=== PATIENT | female | born 1975 | race Caucasian/White ===

== ENCOUNTER 2020-07-24 07:06 | Day surgery (SDC) | payer BC, OTHER ==
[2020-07-23 13:01] VITALS: BMI 26.6
[2020-07-24] MEDS ORDERED: PROPOFOL 20 ML ONE ×3 (08:03)
[2020-07-24] MEDS ORDERED: LIDOCAINE HCL/PF 2% SDV 5ML VIAL ONE (08:03)
[2020-07-24 08:45] VITALS: TEMP 98.4
[2020-07-24 09:03] VITALS: BP 114/66; PULSE 64
== END 2020-07-24 09:27 | disposition home or self-care (01) ==
LOC: FASU-ENDO 07:06
PROVIDERS: ATTEND Internal Medicine Gastroenterology
PROC: 0DB68ZX Excision of Stomach, Via Natural or Artificial Opening Endoscopic, Diagnostic (ICD-10-PCS; 2020-07-24)
PROC: 0DB98ZX Excision of Duodenum, Via Natural or Artificial Opening Endoscopic, Diagnostic (ICD-10-PCS; principal; 2020-07-24 08:19)
DX: K31.7 Polyp of stomach and duodenum (principal); K29.50 Unspecified chronic gastritis without bleeding; K21.9 Gastro-esophageal reflux disease without esophagitis; R10.13 Epigastric pain
CPT/HCPCS: 84703; 88305-TC; 88342-TC

== ENCOUNTER 2021-02-02 07:32 | Day surgery (SDC) | payer BC ==
[2021-01-29 11:45] VITALS: BMI 26.6
[2021-02-02] MEDS ORDERED: LIDOCAINE HCL/PF 2% SDV 5ML VIAL ONE (07:40)
[2021-02-02] MEDS ORDERED: PROPOFOL 20 ML ONE ×4 (07:40)
[2021-02-02 09:07] VITALS: TEMP 97.8
[2021-02-02 09:28] VITALS: BP 110/65; PULSE 60
== END 2021-02-02 09:50 | disposition home or self-care (01) ==
LOC: FASU-ENDO 07:32
PROVIDERS: ATTEND Internal Medicine Gastroenterology
PROC: 0DBN8ZX Excision of Sigmoid Colon, Via Natural or Artificial Opening Endoscopic, Diagnostic (ICD-10-PCS; principal; 2021-02-02 08:33)
DX: Z12.11 Encounter for screening for malignant neoplasm of colon (principal); Z83.71 Family history of colonic polyps; D12.5 Benign neoplasm of sigmoid colon
CPT/HCPCS: 81025; 88305-TC

== ENCOUNTER 2022-07-28 16:13 | Emergency (ER) | payer BC, OTHER ==
[2022-07-28] MEDS ORDERED: diphenhydrAMINE HCL 25 MG CAPSULE (FP) PO ONE (16:16)
[2022-07-28] MEDS ORDERED: diphenhydrAMINE HCL 50 MG CAPSULE ONE (16:27)
[2022-07-28] MEDS ORDERED: DEXAMETHASONE LIQUID 0.5 MG/5 ML PO ONE (16:27)
[2022-07-28] MEDS ORDERED: EPINEPHrine 1:1,000 0.3 MG/0.3 ML SYR IM ONE ×2 (16:28→18:01)
[2022-07-28] MEDS ORDERED: EPINEPHrine/PF 1 MG/1 ML (1:1,000) AMPULE ONE ×2 (16:30→18:03)
[2022-07-28] MEDS ORDERED: DEXAMETHASONE SOD PHOSPHATE 10 MG/1 ML VIAL ONE (16:30)
[2022-07-28] MEDS ORDERED: ALBUTEROL SO4 2.5/IPRATROPIUM 0.5 INH SOL 3 ML VIAL.NEB. NEB ONE ×3 (16:30→18:08)
[2022-07-28 16:41] VITALS: TEMP 99.3
[2022-07-28 16:48] VITALS: BMI 26.6
[2022-07-28] MEDS ORDERED: FAMOTIDINE 20 MG TABLET PO ONE (18:07)
[2022-07-28] MEDS ORDERED: FAMOTIDINE 20 MG TABLET ONE (18:08)
[2022-07-28] MEDS ORDERED: ALBUTEROL SO4 2.5/IPRATROPIUM 0.5 INH SOL 3 ML VIAL.NEB. NEB SCH (18:15)
[2022-07-28 20:00] VITALS: PULSE 93; RESP 14
[2022-07-28 21:09] VITALS: BP 115/70
== END 2022-07-28 22:57 | disposition home or self-care (01) ==
LOC: FER 16:13
PROC: 3E023GC Introduction of Other Therapeutic Substance into Muscle, Percutaneous Approach (ICD-10-PCS; principal; 2022-07-28)
PROC: 3E0F7GC Introduction of Other Therapeutic Substance into Respiratory Tract, Via Natural or Artificial Opening (ICD-10-PCS; 2022-07-28)
DX: T78.2XXA Anaphylactic shock, unspecified, initial encounter (principal)
CPT/HCPCS: 99284-25; J0171